=== PATIENT | male | born 2000 | race Caucasian/White ===

== ENCOUNTER 2020-02-20 15:55 | Emergency (ER) | payer OTHER ==
[~2020-02-20] VITALS: Ht 177.8 cm; Wt 68.0 kg
[~2020-02-20 15:55] MED LIST: CIPRO250 M1 PO; CIPROFLOXACIN500 M3 PO; NOHOMEMEDICATIONS
[2020-02-20] MEDS ORDERED: ZPAK PO (17:02)
[2020-02-20] MEDS ORDERED: VENTOLIN HFA 1818 GM INH (17:02)
[2020-02-20] MEDS ORDERED: PREDNISONE 20 M20 M1 PO (17:02)
[2020-02-20 18:17] VITALS: BP 130/73
== END 2020-02-20 18:18 | disposition home or self-care (01) ==
LOC: M.ERS 15:55
DX: J40 Bronchitis, not specified as acute or chronic (principal); Z20.828 Contact with and (suspected) exposure to other viral communicable diseases

== ENCOUNTER 2021-06-12 15:44 | Emergency (ER) | payer OTHER ==
[~2021-06-12] VITALS: Ht 180.3 cm; Wt 72.6 kg
[~2021-06-12 15:44] MED LIST changes: +PREDNISONE 20 M20 M1 PO; +VENTOLIN HFA 1818 GM INH; +ZPAK PO
[2021-06-12 16:28] LABS: HEMATOCRIT 46.6 % (42.0-52.0); HEMOGLOBIN 16.1 gm/dL (14.0-18.0); MCH 29.6 pg (26.0-34.0); MCHC 34.6 g/dL (28.0-37.0); MCV 85.6 fL (80.0-100.0); MPV 10.2 fl. (7.2-11.1); NUCLEATED RBCS 0 /100WBC; PLATELET COUNT* 231 thou/uL (150-400); RBC 5.45 mil/uL (4.50-6.00); RDW-CV 12.9 % (10.5-14.5); WBC 8.1 thou/uL (4.0-11.0)
[2021-06-12 16:36] LABS: ANION GAP 8 mmol/L (7-16); BUN 22 mg/dL (7-18); CALCIUM 8.8 mg/dL (8.5-10.1); CHLORIDE 104 mmol/L (98-107); CO2 28 mmol/L (21-32); GLUCOSE 122 mg/dL (70-99); POTASSIUM 3.6 mmol/L (3.5-5.1); SODIUM 140 mmol/L (136-145)
[2021-06-12 16:50] LABS: ALBUMIN 3.9 g/dL (3.4-5.0); ALKALINE PHOSPHATASE 69 U/L (46-116); NT-PRO BRAIN NAT PEPTIDE < 5 pg/mL (<300); SGOT 16 U/L (15-37); SGPT 24 U/L (30-65); TOTAL BILIRUBIN 0.7 mg/dL (<0.1-1.0); TOTAL PROTEIN 7.4 g/dL (6.4-8.2)
[2021-06-12] MEDS ORDERED: TESSALON PERLE100 MG PO (17:37)
[2021-06-12] MEDS ORDERED: PREDNISONE 20 M20 MG PO (17:37)
[2021-06-12] MEDS ORDERED: PROAIR HFA8.5 GM INH (17:37)
[2021-06-12 17:58] VITALS: BP 135/80
[2021-06-12 18:01] LABS: ABSOLUTE EOSINOPHILS 0.7 thou/uL (0.0-0.7); ABSOLUTE LYMPHOCYTES 3.1 thou/uL (0.8-5.3); ABSOLUTE MONOCYTES 0.6 thou/uL (0.0-1.2); ABSOLUTE NEUTROPHILS 3.7 thou/uL (1.6-8.1); LARGE PLATELETS RARE; PLATELET ESTIMATE ADEQUATE
== END 2021-06-12 17:58 | disposition home or self-care (01) ==
LOC: M.ERS 15:44
PROVIDERS: Family Medicine
DX: J20.9 Acute bronchitis, unspecified (principal); Z20.822 Contact with and (suspected) exposure to COVID-19